=== PATIENT | female | born 1990 | race African-American/Black ===

== ENCOUNTER 2022-05-20 09:51 | Inpatient (IN) | payer OTHER ==
[~2022-05-20] VITALS: Ht 152.4 cm; Wt 90.7 kg
[2022-05-20] MEDS ORDERED: ZESTRIL20 MG PO (10:05)
[2022-05-30] MEDS ORDERED: CETIRIZINE1 MG/1 ML PO (18:50)
[2022-05-30] MEDS ORDERED: XOPENEX CO1.25 MG/0. IH (18:51)
[2022-05-30] MEDS ORDERED: TUSSIN DM LIQU118 ML PO (18:51)
[2022-05-30] MEDS ORDERED: ZESTRIL20 MG PO (18:51)
[2022-05-30] MEDS ORDERED: BUDESONIDE0.5 MG/2 M IH (18:51)
[2022-05-30] MEDS ORDERED: INTESTINEX680 M1 PO (18:52)
[2022-05-30] MEDS ORDERED: MONTELUKAST SOD10 MG PO (18:52)
[2022-05-30] MEDS ORDERED: FAMOTIDINE20 MG PO (18:52)
[2022-05-30] MEDS ORDERED: MEDROLPACK PO (18:53)
== END 2022-05-30 22:09 | disposition home or self-care (01) | DRG 202 ==
LOC: ER 09:51 → MEDJ 18:40 → MEDI 18:40 → MEDJ 20:39
PROVIDERS: ADMIT Internal Medicine; ATTEND Internal Medicine
PROC: BW24ZZZ Computerized Tomography (CT Scan) of Chest and Abdomen (ICD-10-PCS; principal; 2022-05-20)
PROC: CW1NLZZ Planar Nuclear Medicine Imaging of Whole Body using Gallium 67 (Ga-67) (ICD-10-PCS; 2022-05-21)
PROC: BW24ZZZ Computerized Tomography (CT Scan) of Chest and Abdomen (ICD-10-PCS; 2022-05-28)
DX: J45.31 Mild persistent asthma with (acute) exacerbation (principal); J47.0 Bronchiectasis with acute lower respiratory infection; A31.0 Pulmonary mycobacterial infection; R09.02 Hypoxemia; R91.8 Other nonspecific abnormal finding of lung field; I10 Essential (primary) hypertension; Z20.822 Contact with and (suspected) exposure to COVID-19